=== PATIENT | female | born 1970 | race Caucasian/White ===

== ENCOUNTER 2021-08-17 12:30 | Emergency (ER) | payer OTHER, SELFPAY ==
--- NOTE | ~2021-08-17 | XR_ITS ---
XR knee LT min 4V DATE: 08/17/2021 13:15 INDICATION: Anterolateral left knee pain and swelling for one day TECHNIQUE: 5 views COMPARISON: None FINDINGS: There is osteopenia. 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 No fracture or dislocation, periosteal reaction or bone destruction, radiopaque intra-articular loose body or chondrocalcinosis is detected. IMPRESSION: Tricompartment osteophytosis, most severe at medial compartment Osteopenia No fracture or dislocation Reviewed, dictated and finalized at location A.
[2021-08-17 12:36] VITALS: BP 127/76; PULSE 81; RESP 20; TEMP 37.1; O2SAT 100
--- NOTE | 2021-08-17 13:05 | ED.LOWEXIN ---
HPI - Extremity Injury (Lower) General Chief Complaint: Extremity Problem,Nontraumatic Stated Complaint: Left Knee Pain Time Seen by Provider: 08/17/21 13:18 Source: patient Mode of arrival: ambulatory Limitations: no limitations History of Present Illness HPI Narrative: 50-year-old female with a history of chronic left knee pain presented for complaint of worsening left knee pain today. Denies injury. States she follows with ortho at [facility] for injections, next due in Oct. pain is worse in the left lateral knee, states it makes it difficult for her to walk. She is taking diclofenac for pain and states it did not help. Also tried using a soft knee brace but states it was too tight. 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 Denies numbness, tingling, or weakness of the lower extremity. Related Data Home Medications Medication Instructions Recorded Confirmed bupropion HCl 150 mg tablet,12 hr 1 tablet PO BID 08/17/21 08/17/21 sustained-release diclofenac sodium 50 mg 1 tablet PO DAILY 08/17/21 08/17/21 tablet,delayed release escitalopram oxalate 20 mg tablet 1 tablet PO DAILY 08/17/21 08/17/21 hydroxyzine HCl 25 mg tablet 1 tablet PO DAILY 08/17/21 08/17/21 Allergies Allergy/AdvReac Type Severity Reaction Status Date / Time No Known Allergies Allergy Verified 08/17/21 13:23 Review of Systems Review of Systems: CONSTITUTIONAL: Denies body aches, fever, chills EYES: Denies visual changes ENT: Denies rhinorrhea, congestion CARDIOVASCULAR: Denies chest pain, palpitations, or edema. RESPIRATORY: Denies cough or dyspnea. GASTROINTESTINAL: Denies abdominal pain, nausea, vomiting, or diarrhea. SKIN: Denies rash, itching, or wounds. MUSCULOSKELETAL: Denies back pain or myalgia. NEUROLOGIC: Denies headache, numbness, tingling, or weakness. PSYCH: Denies depression or anxiety. All systems reviewed & are unremarkable except as noted in HPI and below PMFSH Comments At time of signature, I have reviewed and agree with nursing past medical, surgical, social and family history unless otherwise noted. Please see nursing chart for further information. There is no relevant family history pertinent to the presenting complaint Exam Narrative: GENERAL: Well-appearing CHEST: Speaks in full sentences. No respiratory distress. HEART: Regular rate and rhythm. Normal and equal peripheral pulses. EXTREMITIES: Left lateral knee TTP; LLE has normal strength and sensation, limited range of motion at knee. No edema or ecchymosis, No open wounds, skin tenting, or obvious deformity; pulse palpable and equal bilaterally, skin warm, dry, pink. Capillary refill less than 3 seconds. SKIN: Warm, dry, no rash. NEURO: Alert and oriented x3. PSYCH: Normal mood and affect Course Course Emergency Course: Patient is aware of diagnosis, understands and agrees to treatment plan. Anticipatory guidance given. Patient agrees to follow-up as directed and is aware of reasons to seek care at the emergency department. Portions of this record may have been created with voice recognition software Level of Care: Express Care Visit Vital Signs Vital signs: Vital Signs Temperature 98.8 F 08/17/21 12:36 Pulse Rate 81 08/17/21 12:36 Respiratory Rate 20 08/17/21 12:36 Blood Pressure 127/76 08/17/21 12:36 Pulse Oximetry 100 08/17/21 12:36 Oxygen Delivery Room Air 08/17/21 12:36 Temperature 98.8 F 08/17/21 12:36 Pulse Rate 81 08/17/21 12:36 Respiratory Rate 20 08/17/21 12:36 Blood Pressure 127/76 08/17/21 12:36 Pulse Oximetry 100 08/17/21 12:36 Oxygen Delivery Room Air 08/17/21 12:36 Reviewed MDM - Extremity Injury (Lower) Imaging Data Radiologist's impression: Ordering Physician: Billie Nash APRN Date of Service: 08/17/21 Procedure(s): XR knee LT min 4V Accession Number(s): [id number] cc: Billie Nash APRN; DIRECTOR [employer]
== END 2021-08-17 13:45 | disposition home or self-care (01) ==
PROVIDERS: Emergency Provider Nurse Practitioner Family
DX: M25.562 Pain in left knee (principal); F41.9 Anxiety disorder, unspecified
CPT/HCPCS: 73564; 99213; G0463